=== PATIENT | female | born 1945 | race Caucasian/White ===

== ENCOUNTER 2017-11-17 13:47 | Day surgery (SDC) | payer MEDICARE ==
[2017-11-12 13:46] LABS: BASOPHILS # (AUTO) 0.1 X10'3 (0-0.2); BASOPHILS % (AUTO) 0.6 % (0-1); EOSINOPHILS # (AUTO) 0.4 X10'3 (0-0.9); EOSINOPHILS % (AUTO) 4.6 % (0-6); HEMATOCRIT 45.4 % (35.0-45.0); HEMOGLOBIN 15.6 g/dl (12.0-16.0); LYMPHOCYTES # (AUTO) 2.6 X10'3 (1.1-4.8); LYMPHOCYTES % (AUTO) 30.6 % (21-51); MEAN CORPUSCULAR HEMOGLOBIN 31.6 PG (27.0-31.0); MEAN CORPUSCULAR HGB CONC 34.4 % (33.0-36.5); MEAN PLATELET VOLUME 9.5 FL (7.4-10.4); MONOCYTES # (AUTO) 0.9 X10'3 (0-0.9); MONOCYTES % (AUTO) 10.7 % (2-12); NEUTROPHILS # (AUTO) 4.6 X10'3 (1.8-7.7); NEUTROPHILS % (AUTO) 53.5 % (42-75); PLATELET COUNT 287 X10'3 (140-440); RED BLOOD COUNT 4.93 X10'6 (4.20-5.60); RED CELL DISTRIBUTION WIDTH 12.9 % (11.5-14.5); WHITE BLOOD COUNT 8.5 X10'3 (4.5-11.0)
[2017-11-12 13:55] LABS: ALBUMIN 4.2 G/DL (3.4-5.0); ANION GAP 9 (8-16); BLOOD UREA NITROGEN 22 MG/DL (7-18); BUN/CREATININE RATIO 21.8 (6.6-38.0); CALCIUM 9.3 MG/DL (8.5-10.1); CHLORIDE 102 MMOL/L (99-107); CREATININE 1.01 MG/DL (0.40-0.90); GLUCOSE 136 MG/DL (70-104); POTASSIUM 4.6 MMOL/L (3.5-5.1); SODIUM 137 MMOL/L (135-145); TOTAL CARBON DIOXIDE 26.4 MMOL/L (24-32); eGFR 54 ML/MIN
[2017-11-12 13:56] LABS: INR 1.2 INR; PARTIAL THROMBOPLASTIN TIME 30 SECONDS (22-32); PROTHROMBIN TIME 12.5 SECONDS (9.0-12.0)
[2017-11-17] VITALS (9 sets, daily range): BP systolic 103–141; BP diastolic 41–88
[~2017-11-17] VITALS: Ht 154.9 cm; Wt 74.2 kg
[~2017-11-17 13:47] MED LIST: ATEN25TA PO; FLEC100T2 PO
[2017-11-17] MEDS ORDERED: fentaNYL/PF 50MCG/1 ML 2ML syringe IV ONE (14:25)
[2017-11-17] MEDS ORDERED: normal saline 1000ml 1,000 ML IV SCH (14:25)
[2017-11-17] MEDS ORDERED: morphine 10mg/ml inj. IV ONE (14:25)
[2017-11-17] MEDS ORDERED: FURO40TA4 PO (14:58)
[2017-11-17] MEDS ORDERED: RIVA20TA PO (14:58)
[2017-11-17] MEDS ORDERED: NAPR220C15 PO (14:58)
[2017-11-17] MEDS ORDERED: ASPI81TA52 PO (14:58)
[2017-11-17] MEDS ORDERED: POTA20TA10 PO (14:58)
[2017-11-17] MEDS ORDERED: DIPH25CA83 PO (14:58)
[2017-11-17] MEDS ORDERED: TEMA15CA PO (14:58)
[2017-11-17] MEDS ORDERED: MIDAZolam 5mg/ml 2ml vial IV ONE (16:30)
== END 2017-11-17 18:30 | disposition home or self-care (01) ==
LOC: SSTAY O 13:47
PROVIDERS: ATTEND Internal Medicine Interventional Cardiology
DX: I48.0 Paroxysmal atrial fibrillation (principal); I48.3 Typical atrial flutter; I10 Essential (primary) hypertension; E78.5 Hyperlipidemia, unspecified; I25.10 Atherosclerotic heart disease of native coronary artery without angina pectoris; M19.011 Primary osteoarthritis, right shoulder; Z79.82 Long term (current) use of aspirin; Z86.73 Personal history of transient ischemic attack (TIA), and cerebral infarction without residual deficits; Z87.891 Personal history of nicotine dependence; Z72.89 Other problems related to lifestyle; Z98.51 Tubal ligation status; Z96.611 Presence of right artificial shoulder joint; Z88.6 Allergy status to analgesic agent; Z98.890 Other specified postprocedural states; Z79.899 Other long term (current) drug therapy
CPT/HCPCS: 36415; 80048; 85025; 85610; 85730; 92960; 93005; J2250; J3010; J7030

== ENCOUNTER 2018-09-19 07:01 | Day surgery (SDC) | payer MEDICARE ==
[2018-09-19] VITALS (15 sets, daily range): BP systolic 83–149; BP diastolic 33–91
[~2018-09-19] VITALS: Ht 157.5 cm; Wt 75.4 kg
[~2018-09-19 07:01] MED LIST changes: +ASPI81TA52 PO; +DIPH25CA83 PO; +FURO40TA4 PO; +NAPR220C15 PO; +POTA20TA10 PO; +RIVA20TA PO; +TEMA15CA PO
[2018-09-19] MEDS ORDERED: normal saline 1,000 ML IV SCH (07:25)
[2018-09-19] MEDS ORDERED: MIDAZolam 5mg/ml 2ml vial IV ONE (07:25)
[2018-09-19] MEDS ORDERED: fentaNYL/PF 50MCG/1 ML 2ML syringe IV ONE (07:25)
--- NOTE | 2018-09-19 07:37 | NUR ---
left message for MD, pt has not taken Eliquis since September 16, 2018. waiting for response from MD. Also requesting scopalamine patch per pt request.
[2018-09-19] MEDS ORDERED: APIX5TAB3 PO (07:41)
[2018-09-19] MEDS ORDERED: ATEN25TA PO (07:41)
[2018-09-19] MEDS ORDERED: MELA5TAB2 PO (07:41)
--- NOTE | 2018-09-19 08:00 | NUR ---
LEFT SECOND MESSAGE FOR MD, SAME REQUEST EARLIER, WAITING FOR RESPONSE.
[2018-09-19 08:05] LABS: BASOPHILS # (AUTO) 0.1 X10'3 (0-0.2); EOSINOPHILS # (AUTO) 0.4 X10'3 (0-0.9); EOSINOPHILS % (AUTO) 4.7 % (0-6); HEMATOCRIT 43.6 % (35.0-45.0); HEMOGLOBIN 14.4 g/dl (12.0-16.0); LYMPHOCYTES # (AUTO) 2.5 X10'3 (1.1-4.8); LYMPHOCYTES % (AUTO) 27.6 % (21-51); MEAN CORPUSCULAR HEMOGLOBIN 30.9 PG (27.0-31.0); MEAN CORPUSCULAR HGB CONC 33.2 g/dL (33.0-36.5); MEAN CORPUSCULAR VOLUME 93.2 FL (78-98); MEAN PLATELET VOLUME 9.4 FL (7.4-10.4); MONOCYTES % (AUTO) 11.5 % (2-12); NEUTROPHILS # (AUTO) 4.9 X10'3 (1.8-7.7); NEUTROPHILS % (AUTO) 55.2 % (42-75); PLATELET COUNT 289 X10'3 (140-440); RED BLOOD COUNT 4.67 X10'6 (4.20-5.60); RED CELL DISTRIBUTION WIDTH 13.1 % (11.5-14.5); WHITE BLOOD COUNT 8.9 X10'3 (4.5-11.0)
[2018-09-19 08:13] LABS: ALBUMIN 3.6 G/DL (3.4-5.0); ANION GAP 10 (8-16); BLOOD UREA NITROGEN 19 MG/DL (7-18); BUN/CREATININE RATIO 23.2 (6.6-38.0); CALCIUM 9.7 MG/DL (8.5-10.1); CHLORIDE 106 MMOL/L (99-107); CREATININE 0.82 MG/DL (0.40-0.90); GLUCOSE 135 MG/DL (70-104); POTASSIUM 4.4 MMOL/L (3.5-5.1); SODIUM 139 MMOL/L (135-145); TOTAL CARBON DIOXIDE 23.2 MMOL/L (24-32); eGFR 68 ML/MIN
[2018-09-19 08:17] LABS: INR 1.1 INR
--- NOTE | 2018-09-19 08:40 | NUR ---
LEFT THIRD MESSAGE FOR MD, SAME REQUEST EARLIER. WAITING FOR RESPONSE.
--- NOTE | 2018-09-19 08:50 | NUR ---
CONTACTED MD BACKLINE NUMBER, LEFT MESSAGE WITH QASIM AT MD OFFICE OF MULTIPLE MESSAGES LEFT. HE STATES MD DOES NOT CHECK IN WITH HIM UNTIL 3PM HOWEVER, HE IS TEXTING HIM NOW. WILL CONTINUE TO WAIT FOR A RESPONSE.
--- NOTE | 2018-09-19 09:40 | NUR ---
bolus 250ml NS, BP 87/42, pt is talking, drowsy, denies any SOB, CP.
[2018-09-19] MEDS ORDERED: scopolamine 1.5mg patch.TD72 TD ONE (09:55)
== END 2018-09-19 11:30 | disposition home or self-care (01) ==
LOC: SSTAY O 07:01
PROVIDERS: ATTEND Internal Medicine Cardiovascular Disease
DX: I48.0 Paroxysmal atrial fibrillation (principal); I48.3 Typical atrial flutter; E11.9 Type 2 diabetes mellitus without complications; F90.9 Attention-deficit hyperactivity disorder, unspecified type; Z79.899 Other long term (current) drug therapy; Z96.619 Presence of unspecified artificial shoulder joint; Z87.891 Personal history of nicotine dependence
CPT/HCPCS: 36415; 80048; 83735; 85025; 85610; 92960; 93005; J2250; J3010; J7030